=== PATIENT | male | born 2000 | race Caucasian/White ===

== ENCOUNTER 2024-08-15 10:51 | Emergency (ER) | payer OTHER, SELFPAY ==
[2024-08-15 11:04] VITALS: BP 107/77; PULSE 76; TEMP 37.4; O2SAT 96; BMI 22.2
--- NOTE | 2024-08-15 11:13 | XR_ITS ---
[facility] [place] [id number] Patient Name: TIMOTHY PFEIFFER MRN: [id number] date: 2000 Sex: M Assigned Patient Location: ER Current Patient Location: ED.MAIN Accession/Order Number: [id number] Exam Date: 08/15/2024 11:36 Report Date: 08/15/2024 11:38 At the request of: IVY MONIQUE MD Procedure: XR knee LT 4V LEFT KNEE - 4 views COMPARISON: None CLINICAL DATA: Left knee popped while playing football 2 days ago. Knee pain. AP, lateral and both oblique views were obtained. No acute fracture is identified. There is no disproportionate joint space narrowing or hypertrophy. There is a small to moderate size knee effusion. No soft tissue swelling is noted. XR/XR knee LT 4V IMPRESSION: KNEE EFFUSION. NO ACUTE BONY FINDINGS. Impression dictated by: Yessenia Ball M.D. 08/15/2024 11:38 AM Dictation Location: [place] [address] Electronically authenticated by: [id number] Y Date: 08/15/2024 11:38
--- OUTSIDE RECORDS SUMMARY | 2024-08-15 11:41 | XMS_ITS | Clinical Summary ---
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 13 tablet 05/04/2024 Active albuterol HFA (Ventolin HFA) 90 mcg/act inhalerIndicati ons:Pneumonitis Inhale 2 puffs every 4 (four) hours if needed for wheezing 18 g 05/04/2024 05/05/19 26 Active Active Problems No known active problems Immunizations Immunization Administration Dates Next Due PPD Test 03/15/2024 Social History Tobacco Use Types Packs/Day Years Used Date Smoking Tobacco: Never Smokeless Tobacco: Never Tobacco Cessation:Counseling Given: Not Answered Alcohol Use Standard Drinks/Week Comments Never 0 (1 standard drink = 0.6 oz pur e alcohol) Sex and Gender Information Value Date Recorded Sex Assigned at Not on file Legal Sex Male 8:06 PM EDT Gender Identity Not on file Sexual Orientation Not on file Last Filed Vital Signs Vital Sign Reading Time Taken Comments Blood Pressure 106/74 05/04/2024 11:43 AM EDT Pulse 62 05/04/2024 11:43 AM EDT Temperature 36.6 C (97.9 F) 05/04/2024 11:43 AM EDT Respiratory Rate - - Oxygen Saturation 99% 05/04/2024 11:43 AM EDT Inhaled Oxygen Concentration - - Weight 68 kg (150 lb) 05/04/2024 11:43 AM EDT Height 172.7 cm (5' 8 ) 06/23/2022 12:00 PM EDT Body Mass Index 22.81 06/23/2022 12:00 PM EDT Plan of Treatment Not on file Insurance [employer] [facility]
--- OUTSIDE RECORDS SUMMARY | 2024-08-15 11:41 | XMS_ITS | Patient Health Record ---
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 Yes How often did you have a drink containing alcoho l? Monthly or less (1 point) How many drinks did you have on a typical occasi on? 1 or 2 (0 points) How often did you have six o r more drinks on one occasion? Never (0 points) Points: 1 Interpretation: Negative Tobacco Use Question Answer Notes Are you a Uses tobacco in other forms Additional Findings: Tobacco User e-Cigarette Problems Problem Type SNOMED Code ICD Code Onset Dates Problem Status W/U Status Risk Notes Problem Nicotine user (640218230) Nicotine abuse (F19.10) Active confirmed Problem Elevated blood pressure reading in office without diagnosis of hypertension (R03.0) Active confirmed Problem 784182353 Vapes nicotine containing substance (Z72.0) Active confirmed Diagnosis [id number] Contact with and (suspected) exposure to environmental tobacco smoke (acute) (chronic) (Z77.22) Problem resolved confirmed Plan Of Treatment No Information Insurance Providers Payer Name Payer Address Payer Phone Subscriber Number Group Number Insured Name Patient Relationship to Insured Coverage Start Date Coverage End Date [facility] [address] [place] [id number] [id number] THONG PFEIFFER Natural Child - Insured has Financial Responsibility [facility] [address] [place] [address] [id number] THONG PFEIFFER Parent Medical (General) History Medical History History ICD Code None Surgical History Surgery Date(Month/Year) nose surgery 02/2017
--- NOTE | 2024-08-15 15:06 | ED.GENADUL1 ---
HPI HPI - General Adult General Chief complaint: Extremity Injury, Lower Stated complaint: LOWER EXTREMITY INJURY 08/13/2024 Time Seen by Provider: 08/15/24 14:13 Source: patient Mode of arrival: Wheelchair Limitations: no limitations History of Present Illness HPI narrative: Patient is a 23-year-old male who is presenting to the ER today with chief complaint of left lateral knee pain. Patient was playing football with his cousins on Thursday. Patient stated that he went to plant his left leg, and make it hard for a turn and felt a popping sensation in the left lateral aspect of his knee. Patient has mild swelling to the area. Patient states he was drinking alcohol at the time. He has no previous injury to his left knee. 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 Patient did not go to work today. Patient has not taken anything for pain today of Tylenol, Motrin or ice. Patient has no other acute complaints. Patient is hard time bearing weight on his left knee/leg, but does not want crutches. Patient has no other acute injury or complaint besides the left knee. All systems are negative except as noted/marked. All systems reviewed and otherwise negative. Nurses note and vital signs reviewed and patient is not hypoxic. General: The patient appears well and in no apparent distress. Patient is resting comfortably on cart. Patient is not toxic, lethargic, or listless Skin: Warm, dry, no pallor noted. There is no rash noted. No petechiae, purpura. Head: Normocephalic, atraumatic Eye: Normal conjunctiva, no drainage, EOMI. PERRL Ears, Nose, Mouth, and Throat: oral mucosa is moist. Nares patent. Mouth without vesicles. Cardiovascular: Regular Rate and Rhythm, no murmur, gallop, rub Respiratory: Patient is in no distress, no accessory muscle use, lungs are clear to auscultation, no wheezing, rales or rhonchi Back: non-tender, no CVA tenderness bilaterally to percussion. No CT LS midline pain GI: no tenderness to palpation, no masses appreciated. No rebound, guarding, or rigidity noted. No distention Musculoskeletal: Patient has full range of motion of all of the extremities except to the left knee. Patient has negative anterior posterior drawer sign. Patient has no pain with varus or valgus stress. Patient has minimal swelling to the superior lateral aspect of the left knee. Patient has no crepitus with flexion extension. No clicking or clunking to left knee. No pain to popliteal fossa. Patient is full range of motion of left hip, ankle, foot with no difficulty. No motor, sensory, or focal neurological deficits Neurological: A&O x4, normal speech Psychiatric: Cooperative Related Data Allergies Allergy/AdvReac Type Severity Reaction Status Date / Time No Known Drug Allergies Allergy Verified 08/15/24 11:03 PFSH PFSH Social History Little interest or pleasure in doing things: not at all Feeling down, depressed, or hopeless: not at all Exam Constitutional Vital Signs, click to edit/add: Last Vital Signs Temp 99.3 F 08/15/24 11:04 Pulse 76 08/15/24 11:04 Resp 16 08/15/24 11:04 BP 107/77 08/15/24 11:04 Pulse Ox 96 08/15/24 11:04 O2 Del Method Room Air 08/15/24 11:04 Course Vital Signs Vital signs: Vital Signs Temperature 99.3 F 08/15/24 11:04 Pulse Rate 76 08/15/24 11:04 Respiratory Rate 16 08/15/24 11:04 Blood Pressure 107/77 08/15/24 11:04 Pulse Oximetry 96 08/15/24 11:04 Oxygen Delivery Method Room Air 08/15/24 11:04 Temperature 99.3 F 08/15/24 11:04 Pulse Rate 76 08/15/24 11:04 Respiratory Rate 16 08/15/24 11:04 Blood Pressure 107/77 08/15/24 11:04 Pulse Oximetry 96 08/15/24 11:04 Oxygen Delivery Method Room Air 08/15/24 11:04 Medical Decision Making [facility] Narrative Medical decision making narrative: Patient seen and examined: Ice, x-ray Differential diagnosis includes but is not limited to: Knee sprain, meniscal tear, internal derangement, knee pain, Diagnostics and management: Radiological studies: Please see the formal radiological report. Left knee x-ray shows effusion, no other acute abnormality. Reevaluation: Patient was placed in a medium knee immobilizer, he did not want crutches. Splint was assisted with . the patient was neurovascularly intact before and after the splint was placed. the affected bones/injured area had proper alignment in a splint. Education on splint care at home was given at bedside. Patient and family have no questions at discharge. Shared decision making: I discussed with the patient the necessary laboratory findings and radiological findings. Social barriers to healthcare: There are no food insecurities, there is no issue with transportation, there are no insurance barriers. Disposition: I discussed with the patient ice, anti-inflammatories. Patient, crutches. Patient given knee immobilizer. Patient will follow-up with orthopedic surgery, patient also does not have a PCP. He is recommended get PCP or follow-up with the health department. Patient was given a work note with restrictions as well. 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 Patient was understanding of the wait time secondary to ER volume. Family's apologies were given. Patient has been Updated. No question at discharge Discharge Plan Discharge Stand Alone Forms: Work/School Release Chief Complaint: Extremity Injury, Lower Clinical Impression: Acute pain of left knee, Acute internal derangement of left knee Patient Disposition: Home, Self-Care Time of Disposition Decision: 15:00 Condition: Fair Mode of Transportation: Private Vehicle Print Language: Indonesian Instructions: Knee Sprain (ED), Knee Pain (ED), Knee Immobilizer (ED), Meniscus Tear (ED) Additional Instructions: Use ice 20 minutes on, 20 minutes off for the next 1 to 2 weeks, do not use heat. Alternate Tylenol and either Motrin, Advil, or ibuprofen every 4 hours to help with pain. Maximum dose of Tylenol is 3000 mg a day. Maximum dose of either Motrin, Advil, or ibuprofen is 2400 mg a day. Wear your knee immobilizer at all times besides ice and shower for the next 1 to 2 weeks. On Thursday, start doing knee exercises to help with mobility. Weight-bear as tolerated for the next 1 to 2 weeks. Follow-up with orthopedic surgery Education on meniscus tear was given to you for educational purposes only. I am not diagnosing you with a meniscus tear, talked about this at bedside as a possibility of a differential diagnosis. Referrals: Elan Navarro MD [Physician, Family Practice] - 1 week Justen Cartagena DO [Physician] - 1 week Physician,Non-Staff, MD [Primary Care Provider] - 1 week Discharge Date/Time: 08/15/24 15:10
== END 2024-08-15 15:10 | disposition home or self-care (01) ==
PROVIDERS: Emergency Provider Emergency Medicine
DX: M23.92 Unspecified internal derangement of left knee (principal); M25.562 Pain in left knee
CPT/HCPCS: 73564; 99283